=== PATIENT | female | born 1960 | race Caucasian/White ===

== ENCOUNTER 2021-02-19 17:31 | Emergency (ER) | payer BC, OTHER ==
[~2021-02-19] VITALS: Ht 167.6 cm; Wt 133.8 kg
[~2021-02-19 17:31] MED LIST: ALBUTEROL SULF8.5 GM INH; ALDACTONE25 MG PO; ASCORBIC ACID500 M3 PO; ASMANEX220 MC1 INH; ASPIRIN EC81 MG PO; BENZONATATE200 MG PO; BETAMETHASONE V15 G1 TOP; CALCIUM 500 MG1 EAC1 PO; CALCIUM600 MG PO; CEFDINIR300 MG PO; CELEBREX100 MG PO; CENTRAL VITE F1 EACH PO; CHOLESTYRAMINE P4 GM PO; COMBIVENT RESPIM4 GM INH; CRESTOR5 MG PO; CYCLOBENZAPRINE10 MG PO; DEPAKENE250 MG PO; DILAUDID2 MG PO; DIPHENHYDRAMINE25 MG PO; DIVALPROEX SOD250 MG PO; DULERA 200 MCG/13 GM INH; FENOFIBRATE160 MG PO; FERROUS SULFAT325 MG PO; FLECTOR1 EACH TOP; FLUCONAZOLE150 MG PO; FLUTICASONE PRO16 GM NS; GABAPENTIN300 MG PO; GLIPIZIDE10 MG PO; GLUCOSAMINE 1,1 EACH PO; GUAIFENESIN-DM S5 ML PO; INDERAL LA120 MG PO; LANTUS100 UNITS/ SUB-Q; LEVOTHYROXINE25 MCG PO; LEVOTHYROXINE50 MCG PO; LIDODERM700 MG TOP; LISINOPRIL20 MG PO; LORATADINE10 MG PO; MEPERIDINE HCL50 MG PO; METFORMIN HCL1000 MG PO; METFORMIN HCL500 M1 PO; METFORMIN HCL500 MG PO; MINOCYCLINE HCL50 MG PO; MIRALAX17 GM PO; MONTELUKAST SOD10 MG PO; NASAL DECONGEST10 MG PO; NOVOLOG FL100 UNIT/1 SUB-Q; NUCYNTA50 MG PO; NYSTATIN15 GM TOP; NYSTOP60 GM TOP; OMEGA 3 1,0001 EACH PO; OMEPRAZOLE20 MG PO; PAROXETINE HCL20 MG PO; PREDNISONE10 MG PO; PSEUDOEPHEDRINE60 MG PO; SIMVASTATIN20 MG PO; SUMATRIPTAN SUC25 MG PO; TRAMADOL HCL50 MG PO; VALIUM5 MG PO; VITAMIN D32000 UNI1 PO; VITAMIN D33000 UNIT PO; XARELTO10 MG PO
--- OUTSIDE RECORDS SUMMARY | 2021-02-19 17:34 | XMS ---
PreManage Notification: JUAN HENAO Security Waitress Events No recent Security Events currently on file CRITERIA MET - [facility] CARE PROVIDERS There are no care providers on record at this time. Alissa has no Care Guidelines for this patient. Sonia VISIT COUNT (12 MO.) 1 EMELINA Card TOTAL 1 NOTE: Visits indicate total known visits. ED/C VISIT TRACKING (12 MO.) 02/19/2021 17:32 EMELINA Singh OR TYPE: Emergency COMPLAINT: - FLU SYMPTOMS INPATIENT VISIT TRACKING (12 MO.) No inpatient visits to display in this time frame [email or web address]
[2021-02-19] MEDS ORDERED: MONTELUKAST SOD10 MG PO (18:17)
[2021-02-19] MEDS ORDERED: AZITHROMYCIN500 MG PO (18:18)
== END 2021-02-19 20:30 | disposition home or self-care (01) ==
LOC: ED 17:31
DX: U07.1 COVID-19 (principal); E11.9 Type 2 diabetes mellitus without complications; I10 Essential (primary) hypertension; E03.9 Hypothyroidism, unspecified; Z88.5 Allergy status to narcotic agent; Z88.2 Allergy status to sulfonamides; Z88.6 Allergy status to analgesic agent; Z88.1 Allergy status to other antibiotic agents; Z79.01 Long term (current) use of anticoagulants; Z79.899 Other long term (current) drug therapy; Z79.4 Long term (current) use of insulin; Z79.82 Long term (current) use of aspirin; Z79.84 Long term (current) use of oral hypoglycemic drugs
CPT/HCPCS: 99283-25; M0243; Q0244

== ENCOUNTER 2021-06-06 16:47 | Emergency (ER) | payer BC, OTHER ==
[~2021-06-06] VITALS: Ht 167.6 cm; Wt 137.9 kg
[~2021-06-06 16:47] MED LIST changes: +AZITHROMYCIN500 MG PO
--- OUTSIDE RECORDS SUMMARY | 2021-06-06 16:50 | XMS ---
PreManage Notification: JUAN HENAO Security Para Machine Operator Events No recent Security Events currently on file CRITERIA MET - [facility] CARE PROVIDERS [facility]/Center 02/23/2021-[facility] PHONE: [phone] Alissa has no Care Guidelines for this patient. Care History Medical/Surgical 02/23/2021 [facility] - PATIENT IS [facility] ELIGIBLE, \T\middot;\T\nbsp; PLEASE REFER PATIENT TO [facility] FOR NON EMERGENT MEDICAL NEEDS. \T\middot;\T\nbsp; [facility] CAN SEE PATIENTS SAME DAY FOR APTS IF PATIENT CALLS FIRST THING IN THE MORNING. E.D. VISIT COUNT (12 MO.) 2 [facility] TOTAL 2 NOTE: Visits indicate total known visits. ED/UCC VISIT TRACKING (12 MO.) 06/06/2021 16:47 EMELINA Singh OR TYPE: Emergency COMPLAINT: - DIABETIC ISSUE 02/19/2021 17:32 EMELINA Singh OR TYPE: Emergency COMPLAINT: - FLU SYMPTOMS DIAGNOSES: - COVID-19 - long-term (current) use of oral hypoglycemic drugs - watermelon harvesting supervisor (current) use of insulin - watermelon harvesting supervisor (current) use of aspirin - Allergy status to sulfonamides - Allergy status to narcotic agent - Type 2 diabetes mellitus without complications - Essential (primary) hypertension - Allergy status to analgesic agent - Other oysterman (current) drug therapy - Hypothyroidism, unspecified - watermelon harvesting supervisor (current) use of anticoagulants - Allergy status to other antibiotic agents INPATIENT VISIT TRACKING (12 MO.) No inpatient visits to display in this time frame [email or web address]
[2021-06-06] MEDS ORDERED: ONDANSETRON ODT8 MG PO (19:40)
== END 2021-06-06 20:05 | disposition home or self-care (01) ==
LOC: ED 16:47
DX: E11.9 Type 2 diabetes mellitus without complications (principal); R53.1 Weakness; I10 Essential (primary) hypertension; E03.9 Hypothyroidism, unspecified; Z88.5 Allergy status to narcotic agent; Z88.8 Allergy status to other drugs, medicaments and biological substances; Z88.2 Allergy status to sulfonamides; Z79.899 Other long term (current) drug therapy; Z79.4 Long term (current) use of insulin; Z79.82 Long term (current) use of aspirin; Z79.84 Long term (current) use of oral hypoglycemic drugs
CPT/HCPCS: 80048; 81001; 85025; 96374; 99285-25; J2405; J7040

== ENCOUNTER 2021-06-08 13:41 | Emergency (ER) | payer BC, OTHER ==
[~2021-06-08] VITALS: Ht 167.6 cm; Wt 137.9 kg
[~2021-06-08 13:41] MED LIST changes: +ONDANSETRON ODT8 MG PO
--- OUTSIDE RECORDS SUMMARY | 2021-06-08 13:48 | XMS ---
PreManage Notification: JUAN HENAO Security Topographic Computator Events No recent Security Events currently on file CRITERIA MET - [facility] - 2 Visits in 30 Days CARE PROVIDERS [facility]/[place] 02/23/2021-[facility] PHONE: [phone] Alissa has no Care Guidelines for this patient. Care History Medical/Surgical 02/23/2021 [facility] - PATIENT IS [facility] ELIGIBLE, \T\middot;\T\nbsp; PLEASE REFER PATIENT TO [facility] FOR NON EMERGENT MEDICAL NEEDS. \T\middot;\T\nbsp; [facility] CAN SEE PATIENTS SAME DAY FOR APTS IF PATIENT CALLS FIRST THING IN THE MORNING. E.D. VISIT COUNT (12 MO.) 3 [facility] TOTAL 3 NOTE: Visits indicate total known visits. ED/UCC VISIT TRACKING (12 MO.) 06/08/2021 13:41 EMELINA Singh OR TYPE: Emergency COMPLAINT: - HEADACHE, LETHARGIC, CONFUSED, SLURRED SPEECH 06/06/2021 16:47 EMELINA Singh OR TYPE: Emergency COMPLAINT: - DIABETIC ISSUE 02/19/2021 17:32 EMELINA Singh OR TYPE: Emergency COMPLAINT: - FLU SYMPTOMS DIAGNOSES: - COVID-19 - assisted (current) use of oral hypoglycemic drugs - intermediate frame tender (current) use of insulin - intermediate frame tender (current) use of aspirin - Allergy status to sulfonamides - Allergy status to narcotic agent - Type 2 diabetes mellitus without complications - Essential (primary) hypertension - Allergy status to analgesic agent - Other tank terminal gauger (current) drug therapy - Hypothyroidism, unspecified - intermediate frame tender (current) use of anticoagulants - Allergy status to other antibiotic agents INPATIENT VISIT TRACKING (12 MO.) No inpatient visits to display in this time frame [id number]
[2021-06-08] MEDS ORDERED: CELECOXIB100 MG PO (14:08)
== END 2021-06-08 19:09 | disposition home or self-care (01) ==
LOC: ED 13:41
DX: R51.9 Headache, unspecified (principal); I10 Essential (primary) hypertension; E11.9 Type 2 diabetes mellitus without complications; E03.9 Hypothyroidism, unspecified; Z88.5 Allergy status to narcotic agent; Z88.8 Allergy status to other drugs, medicaments and biological substances; Z88.2 Allergy status to sulfonamides; Z79.899 Other long term (current) drug therapy; Z79.4 Long term (current) use of insulin; Z79.82 Long term (current) use of aspirin; Z79.84 Long term (current) use of oral hypoglycemic drugs
CPT/HCPCS: 70450; 80053; 85025; 96374; 96375; 96376; 99285-25; J0515; J1200; J2765; J7040

== ENCOUNTER 2022-12-16 12:32 | Day surgery (SDC) | payer BC, OTHER ==
[~2022-12-16] VITALS: Ht 167.6 cm; Wt 110.5 kg
[~2022-12-16 12:32] MED LIST changes: +ALL DAY ALLERGY10 M3 PO; +AMITRIPTYLINE H10 MG PO; +CELECOXIB100 MG PO; +OZEMPIC0.25 MG/0. SQ; +SPIRIVA18 MCG INH; +VENTOLIN HFA18 GM INH
[2022-12-16] MEDS ORDERED: EMGALITY120 MG/1 M SUB-Q (13:07)
[2022-12-16 13:10] VITALS: BP 114/68
--- NOTE | 2022-12-16 14:06 | NUR ---
12/16/22 1406 [address] [place] 1400- PT ARRIVES LEFT LATERAL POSITION, SLEEPING BUT REACTIVE TO STIMULI. O2 AT 3L PER NC, LR INFUSING TO RFA IV. ABD SOFT, ALL MONITORS APPLIED. WILL CONTINUE TO MONITOR.
[2022-12-16 14:32] VITALS: BP 119/52
--- NOTE | 2022-12-17 09:59 | OR ---
[facility] [address], [place] [address] Signed DATE OF OPERATION: 12/16/2022 SURGEON: Calvin Wallace MD PREOPERATIVE DIAGNOSES: 1. Family history of colon cancer (brother). 2. History of hyperplastic polyp in 2009. 3. Diarrhea; currently on Ozempic, 100 pounds weight loss. POSTOPERATIVE DIAGNOSIS: Small polyp, left colon (excised). PROCEDURE: Total colonoscopy to cecum with cold morcellation polypectomy x1. ANESTHESIA: Intravenous sedation, fentanyl 100 mcg, Versed 4 mg. PREOPERATIVE MEDICATIONS: Ancef 2 g IV. INDICATIONS FOR THE PROCEDURE: This 62-year-old white woman is a patient of Dr. Carr at [facility]. She has family history of colon cancer in her brother. She last underwent colonoscopy in 2009, at which time hyperplastic polyp was found in the left colon. She is currently asymptomatic, though does have some diarrhea. This may be attributed to Ozempic, for which she has enjoyed 100 pounds weight loss and better glucose control. 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 She understands the risk of bleeding, infection, and perforation related to colonoscopy and wished to proceed. FINDINGS: The prep was good. Complete colonoscopy was undertaken to the cecum without question. She had a very small polyp of the left colon, which was excised completely. The remaining colon was otherwise normal. DESCRIPTION OF PROCEDURE: The patient was brought to the endoscopy suite and placed in lateral decubitus position and given intravenous sedation to the point of slurred speech and nystagmus with full cardiopulmonary monitoring. Digital rectal examination was normal. Electronically Signed By: CALVIN WALLACE MD 12/17/22 0959 PATIENT NAME: JUAN HENAO OPERATIVE REPORT DATE OF : 62 REPORT #: [id number] PHYSICIAN: CALVIN WALLACE MD PCP: TREASURE CARR MD REPORT IS CONFIDENTIAL AND NOT TO BE RELEASED WITHOUT AUTHORIZATION [facility] [address], [place] [address] Signed An Olympus video colonoscope was passed into the rectum and manipulated throughout the colon, ultimately intubating the cecum itself. The ileocecal valve and appendiceal orifice were normal. The scope was withdrawn from that point. Examination showed no sign of abnormality until approximately 50 cm from the anal verge, where a small polyp was noted, this was excised with cold morcellation technique. Further withdrawal of scope showed no other abnormality. Retroflexed view was normal as well. The scope was removed, and the patient taken to the recovery room in good condition. CONCLUDING DIAGNOSIS: Small polyp of colon, otherwise normal. PLAN: We would recommend repeat colonoscopy within five years based on family history and recent polyp excision. She will return to the ongoing care of Dr. Carr at [facility]. MD ETELVINA Otoole/BENY /[id number] cc: Treasure Carr MD Copies: TREASURE CARR MD ~ Electronically Signed By: CALVIN WALLACE MD 12/17/22 0959 PATIENT NAME: JUAN HENAO OPERATIVE REPORT DATE OF : 62 REPORT #: [id number] PHYSICIAN: CALVIN WALLACE MD PCP: TREASURE CARR MD REPORT IS CONFIDENTIAL AND NOT TO BE RELEASED WITHOUT AUTHORIZATION
--- NOTE | 2022-12-21 12:56 | PATH ---
[facility] [place] [facility] [address] [facility] [place], [place] [address] Signed SPECIMEN(S): A SIGMOID POLYP SPECIMEN SOURCE: A. SIGMOID POLYP CLINICAL HISTORY: Surveillance colonoscopy FINAL PATHOLOGIC DIAGNOSIS: Sigmoid polyp: - Tubular adenoma (1 fragment). JVR:grye MICROSCOPIC EXAMINATION: Histologic sections of all submitted blocks are examined by light microscopy. These findings, together with the gross examination, support the pathologic diagnosis. GROSS DESCRIPTION: The specimen, labeled and designated "Alexx, sigmoid colon polyp," is received in formalin and consists of two steve soft tissue fragments, ranging from 0.1 to 0.2 cm. Entirely submitted in (A1). JS (under the direct supervision of a pathologist) The Gross Description was prepared using a voice recognition system. The report was reviewed for accuracy; however, sound-alike word errors, addition and/or deletions may occur. If there is any question about this report, please contact Client Services. PERFORMING LABORATORY: Technical component was performed by [facility], [address] [place] [id number] (CLIA# [id number]). Professional interpretation was performed by [facility] - [facility], [address] [place] [id number] (CLIA#: [id number]). Diagnostician: Derek Kevin MD Pathologist Electronically Signed 12/21/2022 PATIENT NAME: JUAN HENAO PATHOLOGY DATE OF : 62 REPORT #: [id number] PHYSICIAN: [facility] PCP: TREASURE MURO MD REPORT IS CONFIDENTIAL AND NOT TO BE RELEASED WITHOUT AUTHORIZATION [address], [place] [address] Signed Copies: ~ PATIENT NAME: JUAN HENAO PATHOLOGY DATE OF : 62 REPORT #: [id number] PHYSICIAN: [facility] PCP: TREASURE MURO MD REPORT IS CONFIDENTIAL AND NOT TO BE RELEASED WITHOUT AUTHORIZATION
== END 2022-12-16 14:43 | disposition home or self-care (01) ==
LOC: OPS 12:32 → DS 12:36 → OPS 13:45 → DS 13:45 → OPS 14:43
PROVIDERS: ATTEND Surgery
PROC: 0DBG8ZX Excision of Left Large Intestine, Via Natural or Artificial Opening Endoscopic, Diagnostic (ICD-10-PCS; principal; 2022-12-16 13:45)
DX: Z12.11 Encounter for screening for malignant neoplasm of colon (principal); D12.5 Benign neoplasm of sigmoid colon; R19.7 Diarrhea, unspecified; Z80.0 Family history of malignant neoplasm of digestive organs; Z86.010 Personal history of colon polyps; E11.9 Type 2 diabetes mellitus without complications; I10 Essential (primary) hypertension; E88.81 Metabolic syndrome and other insulin resistance; K43.2 Incisional hernia without obstruction or gangrene; Z88.5 Allergy status to narcotic agent; Z88.2 Allergy status to sulfonamides; Z88.1 Allergy status to other antibiotic agents; Z88.8 Allergy status to other drugs, medicaments and biological substances; Z79.82 Long term (current) use of aspirin; Z79.4 Long term (current) use of insulin; Z79.899 Other long term (current) drug therapy
CPT/HCPCS: 99153; G0500; J0690; J2250; J3010; J7121